=== PATIENT | male | born 1995 | race African-American/Black ===

== ENCOUNTER 2018-10-05 13:29 | Emergency (ER) | payer SELFPAY ==
[~2018-10-05] VITALS: Ht 177.8 cm; Wt 80.0 kg
[2018-10-05 13:33] VITALS: BP 122/77
== END 2018-10-05 18:57 | disposition left against medical advice (07) ==
LOC: ER 13:29
DX: M79.642 Pain in left hand (principal); Z53.21 Procedure and treatment not carried out due to patient leaving prior to being seen by health care provider

== ENCOUNTER 2018-10-05 19:19 | Emergency (ER) | payer SELFPAY ==
[~2018-10-05] VITALS: Ht 177.8 cm; Wt 79.0 kg
[2018-10-05] MEDS ORDERED: BACITRACIN ZINC OINT UDPKT TOP ONE (22:45)
[2018-10-05] MEDS ORDERED: IBUPROFEN 600MG TABLET PO ONE (22:45)
[2018-10-05] MEDS ORDERED: TETANUS, DIPHTHERIA, PERTUSSIS VAC/PF 0.5ML (>7YR OLD) IM ONE (22:45)
[2018-10-05] MEDS ORDERED: LIDOCAINE HCL/PF 1% 10 MG/ML 5ML VIAL IJ ONE (22:45)
[2018-10-06 00:38] VITALS: BP 131/74
== END 2018-10-06 00:47 | disposition home or self-care (01) ==
LOC: ER 19:19
DX: S62.397A Other fracture of fifth metacarpal bone, left hand, initial encounter for closed fracture (principal); S61.412A Laceration without foreign body of left hand, initial encounter; S70.02XA Contusion of left hip, initial encounter; J45.909 Unspecified asthma, uncomplicated; I10 Essential (primary) hypertension; Y08.89XA Assault by other specified means, initial encounter; Y93.89 Activity, other specified; Y92.89 Other specified places as the place of occurrence of the external cause
CPT/HCPCS: 12001; 73130; 73522; 90471; 90715; 99283; J3490